=== PATIENT | female | born 1955 | race Caucasian/White ===

== ENCOUNTER 2018-01-25 12:48 | Day surgery (SDC) | payer OTHER ==
[2018-01-24 15:41] VITALS: BMI 24.8
[2018-01-25] MEDS ORDERED: MIDAZOLAM HCL 2 MG/2 ML SINGLE DOSE VIAL ONE (13:51)
[2018-01-25] MEDS ORDERED: PROPOFOL 20 ML ONE (13:51)
--- NOTE | 2018-01-25 14:53 | HP ---
History & Physical Update - History History: No Change - Physical Physical: No Change - Assessment Assessment: No Change - Plan Plan: No Change Currently as noted:: Hysteroscopy and D&C for PMB on HRT
[2018-01-25] MEDS ORDERED: oxyCODONE HCL 5 MG TABLET PO PRN (15:11)
[2018-01-25] MEDS ORDERED: ONDANSETRON 4 MG/2 ML VIAL IVPUSH PRN (15:11)
[2018-01-25] MEDS ORDERED: LACTATED RINGERS SOLUTION 1,000 ML IV SCH (15:15)
[2018-01-25] MEDS ORDERED: KETOROLAC TROMETHAMINE 30 MG/1 ML VIAL ONE (15:35)
--- NOTE | 2018-01-25 16:32 | OP ---
Operative Note - Note: Operative Date: 01/25/18 Pre-Operative Diagnosis: Postmenopausal bleeding, on HRT Operation: Hysteroscopy, D&C, polypectomy Findings: Stenotic servical os, small posterior uterine wall polyp, atrophic endometrim Post-Operative Diagnosis: Other (postmenopausal bleeding, uterine polyp) Surgeon: Clay Astorga Anesthesiologist/IRONWORKER MACHINE OPERATOR: Wesley Bhatti Anesthesia: General Specimens Removed: Endometrial curettings, uterine polyp Estimated Blood Loss (mls): 2 Blood Volume Replaced (mls): 0 Fluid Volume Replaced (mls): 200 Operative Report Dictated: Yes
[2018-01-25 17:27] VITALS: TEMP 97.8
[2018-01-25 17:43] VITALS: BP 116/68; PULSE 70
--- NOTE | 2018-01-25 20:45 | OP ---
DATE OF OPERATION: 01/25/2018 PREOPERATIVE DIAGNOSIS: Postmenopausal bleeding, female patient on hormone replacement therapy. POSTOPERATIVE DIAGNOSIS: Postmenopausal bleeding on hormone replacement therapy, small uterine polyp. PROCEDURE: Hysteroscopy, dilation and curettage, polypectomy. SURGEON: Clay Salmon M.D. WHEEL AND PINION INSPECTOR: None. ANESTHESIOLOGIST: Wesley Bhatti D.O. ANESTHESIA: General. PATHOLOGY: Endometrial curettings with uterine polyp. ESTIMATED BLOOD LOSS: 2 mL. INTRAVENOUS FLUIDS: 200 mL. COMPLICATIONS: None. FINDINGS: Examination under anesthesia revealed a very small, atrophic cervix flush with the vaginal wall. The cervical os was stenotic. Hysteroscopy revealed a normal uterine cavity with atrophic endometrium, only a single fallopian tube ostium was visualized. There was a small uterine polyp protruding from the posterior uterine wall. DESCRIPTION OF PROCEDURE: The patient was met preoperatively. Risks, benefits, and alternatives of surgery were discussed in detail. All questions were answered. The patient was brought to the OR with the IV running. She was placed on the surgical table in the supine position. The general anesthesia was achieved without difficulty. The patient was then placed in the dorsal lithotomy position. She was examined under anesthesia. A small introverted uterus was noted with no pelvic or adnexal masses. A timeout procedure was then conducted as per standard protocol. The patient was prepped and draped in the usual sterile fashion. A weighted speculum was introduced inside the vagina with good visualization of the cervix. The anterior cervical lip was grasped with a single-toothed tenaculum. The cervix was noted to be very atrophic with a stenotic cervical os. A number 11 scalpel was used to gently incise and open the external cervical os; following this, graduated cervical dilators were used to dilate the cervix. The cervical os was dilated to accommodate a size 13 Matta dilator. A small diagnostic hysteroscope was then gently introduced into the uterine cavity with the findings as described above. The hysteroscope was then removed and a uterine curettage was performed. The tissue was submitted to pathology for evaluation. Once this was completed, a hysteroscope was once again placed inside the uterine cavity. The uterine cavity appeared to be within normal limits. Good hemostasis was noted. All of the instruments were then removed from the patient. Sponge, lap, and instrument counts were correct. Good hemostasis was confirmed. The patient was returned to supine position. She was transferred to recovery room in stable condition. CLAY SALMON M.D. [id number]
--- NOTE | 2018-01-27 15:27 | PATH ---
Surgical Pathology Report Patient Name: JESSICA CASAREZ [facility]. Rec. #: [id number] /Age/Gender: 1955 (Age: 62) / F Account: [id number] Location: [facility] SURGICAL Taken: 01/25/2018 Received: 01/26/2018 Reported: 01/27/2018 Physicians: Clay Astorga M.D. Specimen(s) Received ENDOMETRIAL CURETTINGS Clinical History Postmenopausal bleeding Final Diagnosis ENDOMETRIAL CURETTINGS, DILATION AND CURETTAGE: FRAGMENTS OF INACTIVE ENDOMETRIUM, LOWER UTERINE SEGMENT, SCANT BENIGN CERVICAL TISSUE, AND RARE SMOOTH MUSCLE FRAGMENTS SUGGESTIVE OF LEIOMYOMA. Electronically Signed Yenni Wong M.D. Gross Description Received in formalin labeled "endometrial curettings" are multiple fragments of pink-pizano tissue measuring 1.2 x 0.7 x 0.2 cm in aggregate. Entire specimen submitted in one cassette. [email or web address]/01/26/2018 [email or web address]/01/26/2018
== END 2018-01-25 17:30 | disposition home or self-care (01) ==
LOC: JASU-SURG 12:48 → JOR 12:48 → JASU-SURG 17:30
PROVIDERS: ATTEND Obstetrics & Gynecology
PROC: 0UJD8ZZ Inspection of Uterus and Cervix, Via Natural or Artificial Opening Endoscopic (ICD-10-PCS; 2018-01-25)
PROC: 0UB97ZX Excision of Uterus, Via Natural or Artificial Opening, Diagnostic (ICD-10-PCS; principal; 2018-01-25 14:00)
PROC: 0UDB7ZX Extraction of Endometrium, Via Natural or Artificial Opening, Diagnostic (ICD-10-PCS; 2018-01-25 14:00)
DX: N95.0 Postmenopausal bleeding (principal); N84.0 Polyp of corpus uteri; Z79.890 Hormone replacement therapy
CPT/HCPCS: 36415; 84703; 86850; 86900; 86901; 88305-TC; 94760